=== PATIENT | female | born 1995 | race Caucasian/White ===

== ENCOUNTER 2019-05-03 17:35 | Emergency (ER) | payer MEDICAID ==
[~2019-05-03] VITALS: Ht 170.2 cm; Wt 124.7 kg
[~2019-05-03 17:35] MED LIST: ACET1TAB12 PO; NO HOME MEDS
[2019-05-03 18:00] VITALS: BP 142/93
[2019-05-03] MEDS ORDERED: rabies immune globulin/PF 150 unit/ml inj IM ONE (20:10)
[2019-05-03] MEDS ORDERED: rabies vaccine (PCEC)/PF 2.5 unit kit IM ONE (20:10)
[2019-05-03] MEDS ORDERED: AMOX-580 PO (21:03)
== END 2019-05-03 22:57 | disposition home or self-care (01) ==
LOC: ER 17:35
DX: S81.031A Puncture wound without foreign body, right knee, initial encounter (principal); S71.132A Puncture wound without foreign body, left thigh, initial encounter; F12.90 Cannabis use, unspecified, uncomplicated; Z79.2 Long term (current) use of antibiotics; Z79.899 Other long term (current) drug therapy; W54.0XXA Bitten by dog, initial encounter; Y93.89 Activity, other specified; Y92.89 Other specified places as the place of occurrence of the external cause; Y99.8 Other external cause status
CPT/HCPCS: 90375; 90471; 90675; 96372; 99283

== ENCOUNTER 2022-09-01 17:11 | Emergency (ER) | payer MEDICAID ==
[~2022-09-01] VITALS: Ht 170.2 cm; Wt 111.9 kg
[2022-09-01 17:30] VITALS: BP 113/78
== END 2022-09-01 18:46 | disposition home or self-care (01) ==
LOC: ER 17:12
DX: M25.461 Effusion, right knee (principal); M25.561 Pain in right knee; Z79.899 Other long term (current) drug therapy
CPT/HCPCS: 73560; 99283